=== PATIENT | female | born 1995 | race Caucasian/White ===

== ENCOUNTER 2019-05-15 09:30 | Day surgery (SDC) | payer BC ==
[2019-05-12 09:26] VITALS: BMI 32.0
[2019-05-15] MEDS ORDERED: MIDAZOLAM HCL 2 MG/2 ML SINGLE DOSE VIAL ONE ×2 (13:19)
--- NOTE | 2019-05-15 14:16 | OP ---
Operative Note - Note: Operative Date: 05/15/19 Pre-Operative Diagnosis: Righr renal stone Operation: Right ESWL Findings: x2 3 mm mid pole Right yuridia stones Surgeon: Kee Toure Estimated Blood Loss (mls): 0 Drains, Volume Out (mls): 0 Operative Report Dictated: Yes
[2019-05-15 16:08] VITALS: BP 117/73; PULSE 80; TEMP 98.3
--- NOTE | 2019-05-15 18:29 | OP ---
DATE OF OPERATION: 05/15/2019 PREOPERATIVE DIAGNOSIS: Right renal stone. POSTOPERATIVE DIAGNOSIS: Right renal stone. PROCEDURE: Right extracorporeal shock-wave lithotripsy. ATTENDING: Mac Alaniz MD ANESTHESIA: Fractional. DESCRIPTION OF PROCEDURE: Patient was brought in the operating room and placed in a supine position on the operating room table. Ultrasonography and fluoroscopy were performed. Two stones each measuring 3-mm were noted in the right mid pole kidney. Anesthesia and preoperative antibiotics were administered. At this point, extracorporeal shock-wave lithotripsy was performed; 1250 impulses at 17 joules of power were administered to each stone. Excellent fragmentation was noted under real time ultrasonography and fluoroscopy. Patient tolerated the procedure very well. MAC ALANIZ M.D. [id number]
== END 2019-05-15 14:55 | disposition home or self-care (01) ==
LOC: JASU-SURG 09:30
PROVIDERS: ATTEND Urology
PROC: 0TF3XZZ Fragmentation in Right Kidney Pelvis, External Approach (ICD-10-PCS; principal; 2019-05-15 12:30)
DX: N20.0 Calculus of kidney (principal)
CPT/HCPCS: 84703

== ENCOUNTER 2019-06-12 06:06 | Day surgery (SDC) | payer BC ==
[2019-06-09 15:06] VITALS: BMI 31.1
[2019-06-12] MEDS ORDERED: SUCCINYLCHOLINE CHLORIDE 200 MG/10 ML SYRINGE ONE (07:58)
[2019-06-12] MEDS ORDERED: PROPOFOL 20 ML ONE ×2 (07:59)
[2019-06-12] MEDS ORDERED: MIDAZOLAM HCL 2 MG/2 ML SINGLE DOSE VIAL ONE ×2 (07:59)
[2019-06-12 08:59] VITALS: TEMP 97.9
--- NOTE | 2019-06-12 09:14 | OP ---
Operative Note - Note: Operative Date: 06/12/19 Pre-Operative Diagnosis: left renal stones Operation: Left ESWL Findings: 3 stones each measuring 3-4mm Post-Operative Diagnosis: Same as Pre-op Surgeon: Kee Toure Anesthesia: Fractional Operative Report Dictated: Yes
[2019-06-12] MEDS ORDERED: ONDANSETRON 4 MG/2 ML VIAL ONE (09:33)
[2019-06-12] MEDS ORDERED: ONDANSETRON 4 MG/2 ML VIAL IVPUSH ONE (09:40)
[2019-06-12 10:42] VITALS: BP 114/67; PULSE 63
--- NOTE | 2019-06-12 11:00 | OP ---
DATE OF OPERATION: 06/12/2019 PREOPERATIVE DIAGNOSIS: Left renal stone. POSTOPERATIVE DIAGNOSIS: Left renal stone. PROCEDURE: Left extracorporeal shock-wave lithotripsy. ATTENDING: Mac Alaniz MD ANESTHESIA: General. DESCRIPTION OF PROCEDURE: The patient was brought in the operating room, placed in a supine position on the operating room table. Ultrasonography and fluoroscopy were performed. Three stones each measuring 3-4 mm were noted in the upper pole of the left kidney. Anesthesia and preoperative antibiotics were then administered. Shock-wave lithotripsy was performed. No complications were noted. The patient tolerated the procedure very well. Excellent fragmentation of the stone was noted under real-time ultrasonography and fluoroscopy. DISPOSITION: To recovery room. MAC ALANIZ M.D. [id number]
== END 2019-06-12 10:48 | disposition home or self-care (01) ==
LOC: JASU-SURG 06:06
PROVIDERS: ATTEND Urology
PROC: 0TF4XZZ Fragmentation in Left Kidney Pelvis, External Approach (ICD-10-PCS; principal; 2019-06-12 18:30)
DX: N20.0 Calculus of kidney (principal)
CPT/HCPCS: 84703

== ENCOUNTER 2019-06-12 18:04 | Emergency (ER) | payer BC ==
[2019-06-12] MEDS ORDERED: ONDANSETRON *ODT* 4 MG TABLET SL ONE (18:11)
[2019-06-12 18:12] VITALS: TEMP 98.6; BMI 29.2
--- NOTE | 2019-06-12 18:34 | PDOC ---
Rapid Medical Evaluation Chief Complaint: Nausea/Vomiting Time Seen by Provider: 06/12/19 18:09 Medical Evaluation: Allergies Allergy/AdvReac Type Severity Reaction Status Date / Time No Known Allergies Allergy Verified 06/09/19 15:07 06/12/19 18:09 I have performed a brief in-person evaluation of this patient. The patient presents with a chief complaint of:s/p lithotripsy today- has become N/V with severe left flank pain ( site of procedure) Pertinent physical exam findings: pale, I have ordered the following: Zofran The patient will proceed to the ED for further evaluation. 06/12/19 18:11 Discharge Disposition - Diagnosis Flank pain - Referrals - Patient Instructions - Post Discharge Activity
[2019-06-12] MEDS ORDERED: SODIUM CHLORIDE 1,000 ML IV STA ×2 (19:25→22:34)
[2019-06-12] MEDS ORDERED: ONDANSETRON 4 MG/2 ML VIAL IVPB ONE (19:25)
--- NOTE | 2019-06-12 19:25 | PDOC ---
History of Present Illness - General Chief Complaint: Nausea/Vomiting Stated Complaint: PAIN Time Seen by Provider: 06/12/19 18:09 History Source: Patient - History of Present Illness Initial Comments: 06/12/19 19:28 24 year old female c/o nausea vomiting s/p lithroprisy and increasing pain to the left flank. denies fever/ chills. denies dysuria. patient reports oliguria . Urologist : Dr. Jose Roberto Hutton PMHx: none Past History - Past Medical History Allergies/Adverse Reactions: Allergies Allergy/AdvReac Type Severity Reaction Status Date / Time No Known Allergies Allergy Verified 06/09/19 15:07 Home Medications: Ambulatory Orders Ondansetron HCl [Zofran] 4 mg PO Q8H PRN #10 tablet 06/12/19 Oxycodone HCl/Acetaminophen [Percocet 5-325 mg Tablet] 1 tab PO Q6H PRN #10 tablet MDD 4 06/12/19 Anemia: No Asthma: No Cancer: No Cardiac Disorders: No CVA: No COPD: No CHF: No Dementia: No Diabetes: No GI Disorders: No Disorders: No HTN: No Hypercholesterolemia: No Liver Disease: No Seizures: No Thyroid Disease: No - Immunization History Immunization Up to Date: No - Psycho Social/Smoking Cessation Hx Smoking History: Never smoked Have you smoked in the past 12 months: No Information on smoking cessation initiated: No Hx Alcohol Use: No Drug/Substance Use Hx: No Substance Use Type: None Hx Substance Use Treatment: No Review of Systems - Review of Systems Able to Perform ROS?: Yes Is the patient limited Serbian proficient: No Constitutional: No: Symptoms Reported, See HPI, Chills, Diaphoresis, Fever, Loss of Appetite, Malaise, Night Sweats, Weakness, Weight Stable, Unintentional Wgt. Loss, Unexplained wgt Loss, Other ABD/GI: Yes: Nausea, Vomiting : Yes: Flank Pain, Other (hesistance ) Musculoskeletal: No: Symptoms Reported, See HPI, Back Pain, Gout, Joint Pain, Joint Swelling, Muscle Pain, Muscle Weakness, Neck Pain, Joint Stiffness, Other *Physical Exam - Vital Signs Last Vital Signs Temp Pulse Resp BP Pulse Ox 98.6 F 74 18 146/77 100 06/12/19 18:10 06/12/19 18:10 06/12/19 18:10 06/12/19 18:10 06/12/19 18:10 - Physical Exam General Appearance: Yes: Moderate Distress Respiratory/Chest: positive: Lungs Clear, Normal Breath Sounds Cardiovascular: positive: Regular Rhythm, Regular Rate Gastrointestinal/Abdominal: positive: Normal Bowel Sounds, Soft, Other ( suprapubic pain) Musculoskeletal: positive: CVA Tenderness Neurologic: positive: Fully Oriented, Alert ED Treatment Course - LABORATORY CBC & Chemistry Diagram: 06/12/19 19:57 06/12/19 19:57 ED Progress Note - Progress Note Progress Note: 06/12/19 20:17 renal colic P: LAbs IVF zofran toradol Medical Decision Making - Medical Decision Making 06/12/19 22:37 Dr. Jose Roberto hutton called x 3. with no call back. patient reports slight pain at this time and discomfort. 06/12/19 23:[address] Jose Roberto hutton. recommends Pain control/ dc/ home to have close outpatient follow up. feels better. will d/c home 06/12/19 23:57 Discharge - Discharge Information Problems reviewed: Yes Clinical Impression/Diagnosis: Flank pain Condition: Stable Disposition: HOME - Additional Discharge Information Prescriptions: Ondansetron HCl [Zofran] 4 mg PO Q8H PRN #10 tablet PRN Reason: Nausea Oxycodone HCl/Acetaminophen [Percocet 5-325 mg Tablet] 1 tab PO Q6H PRN #10 tablet MDD 4 PRN Reason: Pain - Follow up/Referral Referrals: Lorraine Andres MD [Primary Care Provider] - - Patient Discharge Instructions Patient Printed Discharge Instructions: DI for Kidney Stones Additional Instructions: Drink plenty of fluids. Take Percocet every 6 hours as needed for severe pain. You may take Zofran as prescribed fornausea. Please call the urologist office tomorrow morning for a very close follow-up return to the emergency room for any worsening symptoms. - Post Discharge Activity Work/Back to School Note: Back to Work
[2019-06-12] MEDS ORDERED: KETOROLAC TROMETHAMINE 30 MG/1 ML VIAL ONE ×3 (19:34→21:21)
[2019-06-12] MEDS ORDERED: ONDANSETRON 4 MG/2 ML VIAL ONE ×2 (19:34→21:21)
[2019-06-12] MEDS ORDERED: KETOROLAC TROMETHAMINE 30 MG/1 ML VIAL IVPUSH ONE (20:16)
[2019-06-12 20:28] LABS: BASO % 0.2 % (0-2.0); HEMATOCRIT 46.5 % (32.4-45.2); HEMOGLOBIN 15.7 GM/dL (10.7-15.3); LYMPH % 9.3 % (8-40); MCH 31.3 pg (25.7-33.7); MCHC 33.8 g/dl (32.0-36.0); MEAN CELL VOLUME 92.7 fl (80-96); MEAN PLT VOLUME 10.6 fl (7.5-11.1); MONO % 1.9 % (3.8-10.2); NEUT % 88.6 % (42.8-82.8); PLATELET COUNT 226 K/MM3 (134-434); RBC 5.01 M/mm3 (3.60-5.2); RDW 12.9 % (11.6-15.6); WHITE BLOOD COUNT 13.3 K/mm3 (4.0-10.0)
[2019-06-12 20:42] LABS: EPI CELLS 2.9 /HPF (0-5/HPF); HYALINE CASTS 3 /lpf (0-8); URINE APPEARANCE CLOUDY; URINE BACTERIA 36.5 /hpf (NEGATIVE); URINE BILIRUBIN NEGATIVE (NEGATIVE); URINE COLOR YELLOW; URINE GLUCOSE (UA) NEGATIVE (NEGATIVE); URINE KETONE 2+ (NEGATIVE); URINE LEUK ESTERASE NEGATIVE (NEGATIVE); URINE NITRITE NEGATIVE (NEGATIVE); URINE PROTEIN 1+ (NEGATIVE); URINE RBC 222 /hpf (0-4); URINE UROBILINOGEN 0.2 mg/dL (0.2-1.0); URINE WBC 9 /hpf (0-5)
[2019-06-12 20:55] LABS: ALBUMIN 4.4 g/dl (3.4-5.0); BILIRUBIN,TOTAL 0.4 mg/dL (0.2-1); BLOOD UREA NITROGEN 10.2 mg/dL (7-18); CALCIUM 9.5 mg/dL (8.5-10.1); CREATININE 0.8 mg/dL (0.55-1.3); POTASSIUM 4.2 mmol/L (3.5-5.1); TOT PROT 8.1 g/dl (6.4-8.2)
[2019-06-12 21:40] VITALS: BP 105/63; PULSE 68
[2019-06-12] MEDS ORDERED: ACETAMINOPHEN 1000 MG/100 ML VIAL (NON FORMULARY) IVPB ONE (22:34)
== END 2019-06-13 00:05 | disposition home or self-care (01) ==
LOC: JER 18:04
PROC: 3E0337Z Introduction of Electrolytic and Water Balance Substance into Peripheral Vein, Percutaneous Approach (ICD-10-PCS; principal; 2019-06-12)
PROC: 3E033GC Introduction of Other Therapeutic Substance into Peripheral Vein, Percutaneous Approach (ICD-10-PCS; 2019-06-12)
PROC: 3E0333Z Introduction of Anti-inflammatory into Peripheral Vein, Percutaneous Approach (ICD-10-PCS; 2019-06-12)
DX: R10.32 Left lower quadrant pain (principal); Z87.442 Personal history of urinary calculi; Z98.890 Other specified postprocedural states
CPT/HCPCS: 36415; 80053; 81003; 83690; 84703; 85025; 99282-25; J7030